=== PATIENT | male | born 1965 | race Caucasian/White ===

== ENCOUNTER 2020-06-12 11:36 | Emergency (ER) | payer OTHER ==
--- NOTE | 2020-06-12 12:13 | EDM.PDOC ---
ED HPI GENERAL MEDICAL PROBLEM - General Stated Complaint: FALL FROM ELEVATOR Time Seen by Provider: 06/12/20 11:50 Source of Information: Reports: Patient, EMS History Limitations: Reports: No Limitations - History of Present Illness INITIAL COMMENTS - FREE TEXT/NARRATIVE: Patient presents via ambulance with bleeding from scalp and left ear. Patient is alert and responsive but doesn't remember what happened. He does remember details of yesterday and other descriptive details of his life however. He remembers breakfast this morning and [place]. His son was at the scene but another worker was closer and witnessed the incident and told the son that patient was standing on a 4-foot high platform when a piece of equipment started to fall toward him. Patient jumped out of the way quickly and fell on to railroad tracks hitting his head on a wooden railroad tie. The son was there immediately after and says he was unconscious for about 5 minutes. When he awoke he was quite confused. When EMS arrived on scene they found him sitting in his pickup where he had gone to get warmed up. He was ambulating normally. They bandaged the scalp wound and guessed that the bleeding in ear was from the scalp running into it. The confusion improved and he was accurately describing details of family and recent events for EMS but still doesn't remember the incident. He doesn't take blood thinners. head Pain Score (Numeric/FACES): 5 - Related Data Allergies Allergy/AdvReac Type Severity Reaction Status Date / Time No Known Allergies Allergy Verified 06/12/20 12:33 Home Meds: Home Meds Tamsulosin HCl 1 cap PO BEDTIME 03/30/20 [History] lisinopriL [Lisinopril] 20 mg PO DAILY 03/30/20 [History] Past Medical History HEENT History: Reports: Impaired Vision, Other (See Below). Denies: Hard of Hearing Other HEENT History: Patient wears glasses. Cardiovascular History: Reports: Hypertension Genitourinary History: Reports: BPH Musculoskeletal History: Reports: Arthritis, Osteoarthritis - Past Surgical History HEENT Surgical History: Reports: Naso-Sinus Surgery, Other (See Below) Other HEENT Surgeries/Procedures: Sinus surgery in 2009. GI Surgical History: Reports: Appendectomy, Hernia, Inguinal, Other (See Below) Other GI Surgeries/Procedures: Appendectomy at age 9. Right inguinal hernia repair in about 1999. Male Surgical History: Reports: None. Denies: Circumcision, TURP- Transurethral Resection of Prostate, Vasectomy Social & Family History - Caffeine Use Caffeine Use: Reports: Coffee (2 cups/day). Denies: Energy Drinks, Soda, Tea - Living Situation & Occupation Living situation: Reports: (1990 with 5 children), with Family ( and 2 children) Occupation: Employed ([employer] ED ROS GENERAL - Review of Systems Review Of Systems: See Below Constitutional: Denies: Fever, Weakness HEENT: Reports: Other (left parietal pain). Denies: Ear Pain, Vision Change Respiratory: Denies: Shortness of Breath, Cough Cardiovascular: Denies: Chest Pain, Syncope GI/Abdominal: Denies: Abdominal Pain, Diarrhea, Vomiting : Denies: Incontinence Musculoskeletal: Denies: Neck Pain, Shoulder Pain, Arm Pain, Back Pain, Hand Pain, Leg Pain Skin: Denies: Cyanosis, Jaundice, Mottled, Pallor, Diaphoresis Neurological: Reports: Confusion (only concerning the incident/injury), Headache. Denies: Dizziness, Seizure, Trouble Speaking, Difficulty Walking, Weakness Psychiatric: Denies: Agitation, Anxiety Hematologic/Lymphatic: Denies: Easy Bleeding ED EXAM, HEAD INJURY - Physical Exam Exam: See Below Exam Limited By: No Limitations General Appearance: Alert, WD/WN, No Apparent Distress Head: Scalp Abrasions (3: occiput, left parietal and crown.) Nexus Criteria: No: Posterior, Midline Cervical Tenderness, Evidence of Intoxication, Altered Level of Consciousness, Focal Neurological Deficit Eyes: Bilateral Eye: EOMI, Normal Inspection, PERRL Ears: Hearing Loss (light finger rub is heard on right but not on left; he could hear a louder finger rub in left ear however), Canal Blood (on left with active bleeding) Nose: Normal Inspection, No Blood Throat/Mouth: Normal Inspection, Normal Lips, Normal Teeth, Normal Oropharynx, Normal Voice, No Airway Compromise Neck: Non-Tender, Full Range of Motion, Normal Alignment, Normal Inspection Respiratory: No Respiratory Distress, Lungs Clear, Normal Breath Sounds, No Accessory Muscle Use Cardiovascular: Regular Rate, Rhythm, No Murmur GI/Abdominal Exam: Normal Bowel Sounds, Soft, Non-Tender, No Organomegaly, No Distention Back Exam: Normal Inspection, Full Range of Motion Extremities: Normal Inspection, Normal Range of Motion, Non-Tender, No Pedal Edema, Normal Capillary Refill Neurologic: frame wirer II-XII nml As Tested, No Motor/Sensory Deficits, Alert, Normal Mood/Affect, Oriented x 3 Skin: Normal Color, Warm/Dry - Star Coma Score Best Eye Response (Star): (4) Open Spontaneously Best Verbal Response (Ever): (5) Oriented Best Motor Response (Ever): (6) Obeys Commands Course - Vital Signs Last Recorded V/S: Last Vital Signs Temp 96.7 F L 06/12/20 12:05 Pulse 85 06/12/20 12:05 Resp 18 06/12/20 12:05 BP 142/95 H 06/12/20 12:56 Pulse Ox 100 06/12/20 12:05 - Orders/Labs/Meds Meds: Medications Discontinued Medications Generic Name Dose Route Start Last Admin Trade Name Freq PRN Reason Stop Dose Admin Tranexamic Acid 1,000 mg/ 510 mls @ 62.5 mls/hr 06/12/20 13:10 06/12/20 13:29 Sodium Chloride IV 06/12/20 21:19 Not Given ONETIME ONE Levetiracetam 500 mg/ Premix 100 mls @ 400 mls/hr 06/12/20 13:10 06/12/20 13:19 IV 06/12/20 13:24 400 mls/hr ONETIME ONE Administration Sodium Chloride Confirm 06/12/20 13:18 06/12/20 13:47 Normal Saline Administered 06/12/20 13:19 Not Given Dose 50 mls @ as directed .ROUTE .STK-MED ONE Tranexamic Acid 1,000 mg/ 110 mls @ 440 mls/hr 06/12/20 13:23 06/12/20 13:44 Sodium Chloride IV 06/12/20 13:24 440 mls/hr ONETIME ONE Administration Sodium Chloride Confirm 06/12/20 13:26 06/12/20 13:47 Normal Saline Administered 06/12/20 13:27 Not Given Dose 50 mls @ as directed .ROUTE .STK-MED ONE - Re-Assessments/Exams Free Text/Narrative Re-Assessment/Exam: 06/12/20 13:[address] shows left temporal bone fracture possibly extending into the mastoid. Pneumocephalus. Left epidural bleed. Right SAH. Cervical spine CT shows no evident fracture or dislocation. Discussed findings and treatment recommendations with patient and his son. Discussed case with Dr. Lauri WITT and Dr. Violet CHANG at [facility] who accepted for transfer via air. They recommended treating with Keppra and TXA before transfer. 06/12/20 13:46 Report was given to flight crew and patient is stable at time of transfer. Still has headache but no changes. I informed flight crew that the neurosurgeon requested no sedatives unless absolutely necessary. Departure - Departure Time of Disposition: 13:24 Disposition: DC/Tfer to Acute Hospital 02 Condition: Good Clinical Impression: Epidural hemorrhage with loss of consciousness, SAH (subarachnoid hemorrhage), Bleeding from left ear, Scalp abrasion, non-infected, Traumatic hematoma of scalp, Temporal bone fracture - Discharge Information Referrals: Lynn Rai MD [Primary Care Provider] - Forms: ED Department Discharge Sepsis Event Note (ED) - Focused Exam Vital Signs: Vital Signs Temp Pulse Resp BP Pulse Ox 06/12/20 12:56 142/95 H 06/12/20 12:30 142/67 H 06/12/20 12:05 96.7 F L 85 18 153/93 H 100
--- NOTE | 2020-06-12 12:31 | CT ---
[id number] CT/CT Cervical Spine WO IV EXAM: NONCONTRAST CERVICAL SPINE CT INDICATION: FALL WITH HEAD INJURY. COMPARISON: None. DISCUSSION: The vertebral bodies are normal in height and alignment. Left temporal bone fracture, mastoid fluid and pneumocephalus is further detailed on a dedicated head CT. Moderate disc degeneration C5-C6 with milder changes at the remaining disc levels. Mild scattered facet arthropathy. IMPRESSION: 1. No evidence of acute cervical spine trauma. Tal Maciel MD 06/12/20 [id number] Thank you for allowing us to participate in the care of your patient.
--- NOTE | 2020-06-12 12:37 | CT ---
[id number] CT/CT Head WO IV EXAM: NONCONTRAST HEAD CT INDICATION: Fall with head injury and bleeding from the left ear. COMPARISON: April 26, 2010. DISCUSSION: There is an acute essentially nondisplaced left temporal bone fracture involving the petrous and squamous portions. The petrous portion is not well delineated on this examination, but there is associated middle ear fluid and pneumocephalus. 11 mm mixed density acute epidural hematoma deep to the temporal bone fracture site which does contain some gas. Blood products in the right frontotemporal region appear to predominantly represent acute subarachnoid hemorrhage. No significant midline shift or evidence of impending herniation. No hydrocephalus or acute territorial infarct. Extensive opacification of the frontal and ethmoid air cells bilaterally which has been present on prior sinus imaging. Results called at time of dictation. IMPRESSION: Acute left temporal bone fracture involving the petrous and squamous portions. There is an associated acute 11 mm left epidural hematoma deep to the temporal bone fracture site, pneumocephalus and left middle ear/mastoid blood products. Acute right frontoparietal subarachnoid hemorrhage. Tal Maciel MD 06/12/20 [id number] Thank you for allowing us to participate in the care of your patient.
[2020-06-12] MEDS ORDERED: Tranexamic Acid 1,000 MG in Sodium Chloride 0.9% 100 ML IV ONE (13:11)
[2020-06-12] MEDS: levETIRAcetam in NaCl (iso-os) 500 MG in Premix Bag 1 BAG IV ONE ×2 (13:19)
[2020-06-12] MEDS: Tranexamic Acid 1,000 MG in Sodium Chloride 0.9% 500 ML IV ONE (13:29)
[2020-06-12] MEDS: Tranexamic Acid 1,000 MG in Sodium Chloride 0.9% 100 ML IV ONE (13:44)
[2020-06-12] MEDS: Sodium Chloride 0.9% 50 ML ONE ×2 (13:47)
== END 2020-06-12 13:44 ==
LOC: KA.ED 11:36
DX: S06.6X9A Traumatic subarachnoid hemorrhage with loss of consciousness of unspecified duration, initial encounter (principal); S06.4X9A Epidural hemorrhage with loss of consciousness of unspecified duration, initial encounter; S02.19XA Other fracture of base of skull, initial encounter for closed fracture; S00.03XA Contusion of scalp, initial encounter; I10 Essential (primary) hypertension; N40.0 Benign prostatic hyperplasia without lower urinary tract symptoms; Z90.49 Acquired absence of other specified parts of digestive tract; Z79.899 Other long term (current) drug therapy; W01.198A Fall on same level from slipping, tripping and stumbling with subsequent striking against other object, initial encounter; Y92.85 Railroad track as the place of occurrence of the external cause
CPT/HCPCS: 70450; 72125; 96374; 96375; 99284; 99285; J1953